=== PATIENT | female | born 1995 | race Caucasian/White ===

== ENCOUNTER 2017-06-02 12:16 | Emergency (ER) | payer OTHER, SELFPAY ==
[2017-06-02 12:34] LABS: Bilirubin Negative (Negative); Blood, Urine Negative (Negative); Glucose, Urine (Dipstick) Negative (Negative); Ketone, Urine Negative (Negative); Nitrite Negative (Negative); Protein, Urine (Dipstick) Negative (Neg-Trace)
[2017-06-02 12:49] LABS: #Lymphocytes 1.1 thou/uL (1.20-3.40); #Monocytes 0.5 thou/uL (0.11-0.59); #Neutrophils 10.1 thou/uL (1.40-6.50); %Basophils 0.2 % (0.0-1.0); %Eosinophils 0.1 % (0.0-10.0); %Lymphocytes 9.6 % (21.0-51.0); %Monocytes 4.1 % (0.0-10.0); Hematocrit 42.3 % (36.0-47.0); Mean Platelet Volume 9.2 fL (7.4-10.4); Red Blood Cell (RBC) Count 4.75 mill/uL (4.20-5.40); White Blood Cell (WBC) Count 11.8 thou/uL (4.8-10.8)
[2017-06-02 13:11] LABS: Anion Gap 14 mmol/L (10-20); BUN (Urea Nitrogen) 8 mg/dL (7.0-18.7); Calc. Creatinine Clearance 0 mL/min (70-130); Carbon Dioxide 19 mmol/L (22-29); Chloride 105 mmol/L (98-107); Estimated GFR-MDRD Greater than 90; Lipase 14 U/L (8-78)
[2017-06-02] MEDS ORDERED: Ondansetron HCl/PF 4 MG/2 ML Vial ONE ×2 (13:22→15:25)
[2017-06-02] MEDS ORDERED: Morphine 10 MG/ML VIAL ONE ×2 (13:45→15:25)
[2017-06-02] MEDS ORDERED: Dicyclomine 20 MG TAB ONE (13:45)
[2017-06-02 14:40] LABS: ALT (SGPT) 13 U/L (8-55); AST (SGOT) 30 U/L (5-34); Alkaline Phosphatase 58 U/L (40-150); Anion Gap 16 mmol/L (10-20); BUN (Urea Nitrogen) 8 mg/dL (7.0-18.7); Bilirubin, Total 0.4 mg/dL (0.2-1.2); Calc. Creatinine Clearance 0 mL/min (70-130); Calcium 8.9 mg/dL (7.8-10.44); Carbon Dioxide 18 mmol/L (22-29); Chloride 105 mmol/L (98-107); Estimated GFR-MDRD Greater than 90; Globulin 3.7 g/dL (2.4-3.5); Protein, Total 7.8 g/dL (6.0-8.3)
--- NOTE | 2017-06-02 15:43 | ULT ---
GALLBLADDER ULTRASOUND: Date: 06/02/17 HISTORY: Right upper quadrant pain. COMPARISON: None. TECHNIQUE: Utilizing multihertz transducer, sonographic imaging of the right upper quadrant is performed in the longitudinal and transverse plane. FINDINGS: The head of the pancreas has a normal echotexture. The remainder of the pancreas is obscured. Visualized IVC and aorta are unremarkable. Hepatic parenchyma has a normal echotexture. No hepatic masses or intrahepatic biliary dilatation. C ontour of the hepatic margin is maintained. Right hepatic lobe measures 13.9 cm. Main portal vein is patent. Appropriate direction of flow. Common bile duct diameter is 0.6 cm. Within the lumen of the gallbladder, there are shadowing echogenic foci compatible with gallstones. Gallbladder wall is not thickened. No pericholecystic fluid. Negative Elmore' sign. Right kidney has a normal cortical echotexture. No hydronephrosis. Right kidney measures 4.8 x 4.7 x 9.1 cm. IMPRESSION: 1. Sonographic evidence of cholelithiasis without sonographic evidence of cholecystitis. 2. Common bile duct diameter at the upper limits of normal. If there is concern for choledocholithi asis, consider HIDA scan. POS: [facility]
== END 2017-06-02 15:45 | disposition home or self-care (01) ==
LOC: ERS 12:16
DX: K80.80 Other cholelithiasis without obstruction (principal); F31.9 Bipolar disorder, unspecified; Z79.899 Other long term (current) drug therapy
CPT/HCPCS: 36415; 76705; 80048; 81003; 81025; 83690; 85025; 96361; 96372; 96374; 96375; 96376; J2270; J2405

== ENCOUNTER 2017-06-03 10:37 | Day surgery (SDC) | payer BC, SELFPAY ==
[2017-06-03 11:45] LABS: #Eosinphils 0.1 thou/uL (0.0-0.7); #Lymphocytes 1.5 thou/uL (1.20-3.40); #Monocytes 1.2 thou/uL (0.11-0.59); #Neutrophils 9.1 thou/uL (1.40-6.50); %Basophils 0.2 % (0.0-1.0); %Eosinophils 0.6 % (0.0-10.0); %Lymphocytes 12.8 % (21.0-51.0); %Monocytes 9.9 % (0.0-10.0); Hematocrit 46.4 % (36.0-47.0); Red Blood Cell (RBC) Count 5.14 mill/uL (4.20-5.40); White Blood Cell (WBC) Count 11.9 thou/uL (4.8-10.8)
[2017-06-03 12:18] LABS: ALT (SGPT) 30 U/L (8-55); AST (SGOT) 24 U/L (5-34); Alkaline Phosphatase 63 U/L (40-150); Anion Gap 13 mmol/L (10-20); BUN (Urea Nitrogen) 6 mg/dL (7.0-18.7); Bilirubin, Total 1.1 mg/dL (0.2-1.2); Calc. Creatinine Clearance 0 mL/min (70-130); Calcium 9.4 mg/dL (7.8-10.44); Carbon Dioxide 22 mmol/L (22-29); Chloride 103 mmol/L (98-107); Estimated GFR-MDRD Greater than 90; Globulin 3.4 g/dL (2.4-3.5); Lipase 51 U/L (8-78); Protein, Total 7.7 g/dL (6.0-8.3)
[2017-06-03] MEDS ORDERED: Ondansetron HCl/PF 4 MG/2 ML Vial ONE ×2 (13:06→14:10)
[2017-06-03] MEDS ORDERED: Ketorolac Tromethamine 30 MG/ML VIAL ONE ×2 (13:06→14:10)
[2017-06-03] MEDS ORDERED: Lidocaine 2% w/Epinephrine 1:200K 20 ML VIAL ONE (13:09)
[2017-06-03] MEDS ORDERED: Iothalamate Meglumine 60% 50 ML VIAL FS ONE (13:10)
[2017-06-03] MEDS ORDERED: Bupivacaine PF 0.5% 30 ML VIAL ONE (13:10)
[2017-06-03] MEDS ORDERED: Midazolam HCl 2 mg/2 ml Vial ONE ×2 (13:15→13:55)
[2017-06-03] MEDS ORDERED: Fentanyl 100 MCG/2 ML VIAL ONE (13:15)
[2017-06-03] MEDS ORDERED: CEFAZOLIN/Water 2 GM/20 ML SYRINGE ONE (13:39)
--- NOTE | 2017-06-03 13:49 | HP ---
HISTORY OF PRESENT ILLNESS: This is a 21-year-old woman who presented to Emergency Department with insidious onset epigastric to right upper quadrant abdominal pain which woke her up from sleep yeste rd morning at approximately 0700 hours. The pain was associated with multiple episodes of nausea and nonbilious emesis. Her last meal was chicken fried steak dinner the night before last. The patient was seen in the emergency department yesterday, following evaluation was discharged home with a presumptive diagnosis of symptomatic cholelithiasis. The pain has remained unrelenting. The patient returned to the emergency department today with persistent and perhaps even worsening of epigastric abdominal pain. She has remained intolerant to even a liquid diet for fear of exacerbat ing nausea. She denies any fevers or chills. PAST MEDICAL HISTORY: Pertinent for bipolar disorder. SURGICAL HISTORY: Pertinent for benign right breast biopsy and also excisional biopsy of left knee chondroma. 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 She admits to occasional intake of et hanol in moderate amounts. She denies any cigarette smoking or illicit drug abuse. FAMILY HISTORY: Notable for various family members with diabetes mellitus. Paternal grandmother with coronary arterial disease, she has several other extended family members w ith essential hypertension and a maternal aunt with leukemia. PREHOSPITAL MEDICATION: Includes Effexor 75 mg extended release once p.o. daily. ALLERGIES: SULFA DRUGS, DESVENLAXINE. REVIEW OF SYSTEMS: Ten point review of systems essentially unremarkable except for as stated in pas t medical history and chief complaint. PHYSICAL EXAMINATION: GENERAL: This reveals a 21-year-old normally developed woman who is otherwise coherent and interact delmis and appears stated age. The patient is alert and oriented x3, appears to be in moderate acute d istress secondary to abdominal pain. VITAL SIGNS: Includes blood pressure 123/77, pulse 93, respirations 16, temperature is 99.6 degrees Fahrenheit, oxygen saturation is 99% on room air. HEENT: Reveals normocephalic and atraumatic. Pupils are equal, round, and reactive to light and ac commodation. Extraocular muscles are intact bilaterally. She has no sclerae icterus present. Oral mucosa is pink and moist. No lesions are noted. NECK: Supple. No palpable lymphadenopathy or thyromegaly present. HEART: Reveals regular rate and rhythm, no murmurs or gallops auscultated. LUNGS: Clear to auscultation bilaterally. Breathing is regular and unlabored. ABDOMEN: Soft with right upper quadrant tenderness to palpation. She has a positive Elmore sign. Liver and spleen are otherwise nonpalpable below costal margins. EXTREMITIES: Reveals 2+ radial and pedal pulses bilaterally. No ankle edema is present. NEUROLOGIC: Reveals no focal deficits present. PERTINENT LABORATORY DATA: Includes CBC with 11,900 white blood cells, hemoglobin 14.7, hematocrit is 46.4, platelet count is 209,000. Metabolic profile: Sodium 134, potassium is 3.6, chloride is 1 03, bicarbonate 22, BUN 6, creatinine 0.69, glucose 103. AST and ALT are both normal at 24 and 30 r espectively. Total bilirubin is also normal at 1.1. Serum lipase is normal at 51. I have personally reviewed the abdominal ultrasound which was obtained yesterday which reveals multi ple intraluminal large gallstones. There is a large stone impacted in gallbladder neck. There is m inimum gallbladder wall thickening and I did not see any pericholecystic fluid present. IMPRESSION: 1. Acute cholecystitis with cholelithiasis. 2. History of bipolar disorder. RECOMMENDATIONS: Laparoscopic cholecystectomy. The above findings and plan has been discussed wit h the patient and her mother at bedside. I have also informed the patient of the risks and benefits of the proposed surgery. Risks include, but not limited to bleeding, infection, injury to bile audrey t or surrounding structures. This information was given to the patient with the patient's nurse mor payne. I have answered all her questions. The patient has given consent for this admission and s urgical intervention.
[2017-06-03] MEDS ORDERED: Succinylcholine Chloride 20 MG/ML 10 ml SYRINGE FS ONE (14:10)
[2017-06-03] MEDS ORDERED: Metoclopramide HCl 10 MG/2 ML VIAL ONE (14:10)
[2017-06-03] MEDS ORDERED: Lidocaine 1% PF 5 ML VIAL ONE (14:10)
[2017-06-03] MEDS ORDERED: diphenhydrAMINE 50 MG/ML VIAL ONE (14:10)
[2017-06-03] MEDS ORDERED: Esmolol 100 MG/10 ML VIAL ONE (14:10)
[2017-06-03] MEDS ORDERED: Glycopyrrolate 0.2 MG/ML 5 ML SYRINGE ONE (14:10)
[2017-06-03] MEDS ORDERED: Propofol 200 MG/20 ML VIAL ONE (14:10)
[2017-06-03] MEDS ORDERED: Dexamethasone 20 MG/5 ML VIAL ONE (14:10)
--- NOTE | 2017-06-03 15:59 | OP ---
DATE OF OPERATION: 06/03/2017 PREOPERATIVE DIAGNOSES: Acute cholecystitis and cholelithiasis. POSTOPERATIVE DIAGNOSES: Acute cholecystitis and cholelithiasis. OPERATION PERFORMED: Laparoscopic cholecystectomy. SURGEON: Salty Hannon D.O. ANESTHESIA: General endotracheal. ESTIMATED BLOOD LOSS: 20 mL. FLUIDS GIVEN: 1500 mL crystalloids. SPONGE AND INSTRUMENT COUNT: Certified as correct x2. COMPLICATIONS: None apparent at the time of operation. INDICATIONS FOR PROCEDURE: A 21-year-old woman presented with insidious onset of epigastric to righ t upper quadrant abdominal pain associated with multiple episodes of nausea and vomiting. Clinical and radiographic examination was consistent with acute cholecystitis for which patient was brought t o the operating room for cholecystectomy. Findings are consistent with gallbladder in the usual anatomic location encased by omental adhesions . There was significant amount of pericholecystic fluid associated with this inflammation. DESCRIPTION OF PROCEDURE: Informed consent obtained from the patient who was brought to the operati ng room and placed in supine position. Following general anesthesia, abdomen is sterilely prepped a nd draped in the usual fashion. The skin below the umbilicus was infiltrated with 0.25% Marcaine wi th epinephrine. A small curvilinear infraumbilical incision is made using an 11 scalpel. Umbilical stalk was grasped with Chelsie and elevated. Veress needle was inserted through the incision and pl aced in the peritoneal cavity through which the abdomen was insufflated with 3 liters of CO2 gas. I ntraabdominal pressure was noted at 1 mmHg. Following abdominal insufflation, Veress needle was rem brianna and a 5 mm trocar was introduced using a Visiport under laparoscopy. Laparoscopy reveals prope r placement of the port, no injuries to underlying structures. Additional laparoscopy reveals gallb ladder in the usual anatomic location, partially encased by omental adhesions. Under direct laparos copy, a 12 mm epigastric and two 5 mm right lateral subcostal ports were placed after the overlying skin was infiltrated with 0.25% Marcaine with epinephrine and appropriate incisions made. The patie nt is placed in a reverse Trendelenburg position, rotated to her left. I introduced Prestige graspe r through the right lateral subcostal port attempted to grab this fundus of the gallbladder which wa s markedly distended and taut. I decided therefore to decompress the gallbladder. I used Endo suct ion catheter with cautery to perform a cholecystotomy at the fundus of the gallbladder, evacuating e xcess white bile. I then applied a Prestige grasper through the right lateral subcostal port graspi ng the fundus of the gallbladder which was elevated cephalad. Omental adhesions were taken down fro m the gallbladder with good hemostasis achieved in this using cautery. Second Prestige grasper was introduced through the right medial subcostal port grasping the Kristofer's pouch which was retracted laterally. The cystic duct was then carefully dissected free from surrounding structures using a Pina justice dissector introduced through the epigastric port site. The cystic duct was then divided bet ween clips, applying two clips proximally and one clip at the junction of the cystic duct and gallbl adder. The cystic artery was also carefully dissected free from surrounding structures and divided between clips in a similar fashion. Gallbladder itself was removed from the liver bed using cautery . Gallbladder was delivered out off the abdominal cavity using an EndoCatch. Gallbladder fossa was inspected and there was oozing in the gallbladder fossa. Immediate hemostasis was achieved using A rixtra. Operative site was inspected. No bile stains noted. The clips remained in place. Finding , no other pathology, laparoscopy was terminated. Fascia of the epigastric port was closed using 0 Vicryl suture and an Endo closure device under laparoscopy. The abdomen was desufflated. All ports and instruments removed and accounted for. Skin incisions were closed using 4-0 Monocryl suture in subcuticular fashion. Dermabond was applied to the incisions. The patient tolerated the operation without any apparent complication and remains hemodynamically st able and transferred to recovery room.
== END 2017-06-03 14:50 | disposition home or self-care (01) ==
LOC: ERS 10:37 → SDC 13:15 → SDC/OP 14:50
PROVIDERS: ATTEND Surgery
PROC: 0FT44ZZ Resection of Gallbladder, Percutaneous Endoscopic Approach (ICD-10-PCS; principal; 2017-06-03)
DX: K80.12 Calculus of gallbladder with acute and chronic cholecystitis without obstruction (principal); F31.9 Bipolar disorder, unspecified; Z79.899 Other long term (current) drug therapy; Z79.3 Long term (current) use of hormonal contraceptives; Z88.2 Allergy status to sulfonamides; Z88.8 Allergy status to other drugs, medicaments and biological substances; Z98.890 Other specified postprocedural states
CPT/HCPCS: 36415; 80053; 83690; 85025; 88304; 96374; 96375; J0131; J1100; J1200; J1885; J2001; J2250; J2405; J2704; J2765; J3010; Q9961; S0020